=== PATIENT | female | born 1960 | race Caucasian/White ===

== ENCOUNTER 2016-09-15 06:55 | Day surgery (SDC) | payer BC, MEDICAID ==
[~2016-09-15 06:55] MED LIST: FENTANYL CITRATE INJ/PF 100 MCG/2 ML AMPUL ONE; KETOROLAC TROMETHAMINE 0.45% 4 DROP/0.4 ML DROPERETTE OS PRN; MIDAZOLAM 2 MG/2 ML INJ ONE
[2016-09-15] MEDS: CYCLOPENTOLATE 0.2%/PHENYLEPHRINE 1% OPH SOLN 2 ML OS PRN ×3 (07:11→07:42)
[2016-09-15] MEDS: TROPICAMIDE 1% OPH SOLN 3 ML OS PRN ×3 (07:11→07:42)
[2016-09-15] MEDS: BESIFLOXACIN HCL 0.6% OPH SUSP 5 ML BOTTLE OS PRN ×4 (07:12→08:12)
[2016-09-15] MEDS: TETRACAINE HCL 0.5% OPH SOLN 0.6 ML DROPERETTE OS PRN ×3 (07:13→07:53)
[2016-09-15] MEDS ORDERED: CHONDR SU A NA/HYALUR INTRAOC KIT (SURGICARE) ONE (07:15)
[2016-09-15] MEDS ORDERED: EPINEPHRINE INJ/PF 1 MG/1 ML AMPULE ONE (07:15)
[2016-09-15] MEDS ORDERED: LIDOCAINE 1% INJ-PF (10 MG/ML) 30 ML SDV ONE (07:15)
[2016-09-15] MEDS: TOBRAMYCIN SULFATE/DEXAMETH OPH OINTMENT 3.5 GM ONE ×2 (08:12)
== END 2016-09-15 08:55 | disposition home or self-care (01) ==
LOC: SC 06:55
PROVIDERS: ATTEND Ophthalmology
PROC: 08RK3JZ Replacement of Left Lens with Synthetic Substitute, Percutaneous Approach (ICD-10-PCS; principal; 2016-09-15 07:45)
DX: H25.12 Age-related nuclear cataract, left eye (principal); F17.210 Nicotine dependence, cigarettes, uncomplicated; M19.90 Unspecified osteoarthritis, unspecified site; J44.9 Chronic obstructive pulmonary disease, unspecified; E78.00 Pure hypercholesterolemia, unspecified; I10 Essential (primary) hypertension; F41.9 Anxiety disorder, unspecified; F32.9 Major depressive disorder, single episode, unspecified; G40.909 Epilepsy, unspecified, not intractable, without status epilepticus; Z79.899 Other long term (current) drug therapy; Z79.51 Long term (current) use of inhaled steroids; Z88.5 Allergy status to narcotic agent; Z88.2 Allergy status to sulfonamides
CPT/HCPCS: 66984; V2630; J2250; J3490 ×5; J0171; J3010; 142

== ENCOUNTER 2016-10-06 07:29 | Day surgery (SDC) | payer BC, MEDICAID ==
[~2016-10-06 07:29] MED LIST changes: +KETOROLAC TROMETHAMINE 0.45% 4 DROP/0.4 ML DROPERETTE OD PRN; -KETOROLAC TROMETHAMINE 0.45% 4 DROP/0.4 ML DROPERETTE OS PRN; +ONDANSETRON HCL INJ/PF 4 MG/2 ML SDV ONE
[2016-10-06] MEDS ORDERED: LIDOCAINE 1% INJ-PF (10 MG/ML) 30 ML SDV ONE (07:33)
[2016-10-06] MEDS ORDERED: TOBRAMYCIN SULFATE/DEXAMETH OPH OINTMENT 3.5 GM ONE (07:33)
[2016-10-06] MEDS ORDERED: EPINEPHRINE INJ/PF 1 MG/1 ML AMPULE ONE (07:33)
[2016-10-06] MEDS ORDERED: CHONDR SU A NA/HYALUR INTRAOC KIT (SURGICARE) ONE (07:33)
[2016-10-06] MEDS: TROPICAMIDE 1% OPH SOLN 3 ML OD PRN ×3 (07:50→08:11)
[2016-10-06] MEDS: TETRACAINE HCL 0.5% OPH SOLN 0.6 ML DROPERETTE OD PRN ×3 (07:50→08:34)
[2016-10-06] MEDS: CYCLOPENTOLATE 0.2%/PHENYLEPHRINE 1% OPH SOLN 2 ML OD PRN ×3 (07:50→08:11)
[2016-10-06] MEDS: BESIFLOXACIN HCL 0.6% OPH SUSP 5 ML BOTTLE OD PRN ×3 (07:50→08:51)
== END 2016-10-06 09:31 | disposition home or self-care (01) ==
LOC: SC 07:29
PROVIDERS: ATTEND Ophthalmology
PROC: 08RJ3JZ Replacement of Right Lens with Synthetic Substitute, Percutaneous Approach (ICD-10-PCS; principal; 2016-10-06 08:30)
DX: H25.11 Age-related nuclear cataract, right eye (principal); Z96.1 Presence of intraocular lens; M19.90 Unspecified osteoarthritis, unspecified site; J44.9 Chronic obstructive pulmonary disease, unspecified; I10 Essential (primary) hypertension; E78.00 Pure hypercholesterolemia, unspecified; F17.210 Nicotine dependence, cigarettes, uncomplicated; Z75.1 Person awaiting admission to adequate facility elsewhere; Z79.899 Other long term (current) drug therapy; Z88.5 Allergy status to narcotic agent; Z88.2 Allergy status to sulfonamides
CPT/HCPCS: 66984; V2630; J2250; J3490 ×5; J0171; J3010; J2405; 142

== ENCOUNTER 2016-10-16 11:55 | Emergency (ER) | payer BC, MEDICAID ==
[2016-10-16] MEDS ORDERED: ALBUTEROL SULFATE 0.083% NEB 2.5 MG/3 ML AMPUL NEB ONE (11:59)
[2016-10-16] MEDS ORDERED: IPRATROPIUM/ALBUTEROL 0.5-2.5 MG/3 ML AMPUL NEB ONE (11:59)
--- NOTE | 2016-10-16 12:01 | ER Document Report ---
ED Respiratory Problem - General Stated Complaint: DIFFICULTY BREATHING Time Seen by Provider: 10/16/16 11:55 Mode of Arrival: Stretcher Information source: Patient, Emergency Med Personnel TRAVEL OUTSIDE OF THE [place] IN LAST 30 DAYS: No - HPI Patient complains to provider of: COPD, Cough, Short of breath Onset: Yesterday Duration: Worse/persistent Quality of pain: No pain Context: Hx COPD, Smoker Short of Breath: Moderate Chest pain/discomfort: Tightness Cough: Productive Sputum amount: Small Sputum color: Clear Sputum consistency: Mucoid EMS treatments: Bronchodilators, Solumedrol Associated symptoms: Congestion, Cough, Short of breath, Wheezing Similar symptoms previously: Yes Recently seen / treated by doctor: No Notes: Patient is a 55-year-old female who smokes approximately one half pack per day, with a history of COPD, who presents to the emergency room today via EMS complaining of shortness of breath with a productive cough that has been going on for the past few days but worsening last night, cough is productive of clear phlegm, she denies any chest pain, no fever, no sick contacts - Related Data Allergies/Adverse Reactions: codeine Allergy (Verified 10/06/16 08:02) Migraine morphine Allergy (Verified 10/06/16 08:02) Hallucinations Sulfa (Sulfonamide Antibiotics) Allergy (Verified 10/06/16 08:02) Nausea Past Medical History - General Information source: Patient - Social History Smoking Status: Current Every Day Smoker Family History: Reviewed & Not Pertinent - Past Medical History Cardiac Medical History: Reports: Hx Hypertension - medicated Denies: Hx Heart Attack Pulmonary Medical History: Reports: Hx Asthma - medicated Neurological Medical History: Reports: Hx Seizures - LAST 1971,no meds since. Denies: Hx Cerebrovascular Accident GI Medical History: Denies: Hx Hepatitis, Hx Hiatal Hernia, Hx Ulcer Infectious Medical History: Denies: Hx Hepatitis Past Surgical History: Reports: Hx Hysterectomy. Denies: Hx Mastectomy, Hx Open Heart Surgery, Hx Pacemaker Review of Systems - Review of Systems Constitutional: No symptoms reported EENT: No symptoms reported Cardiovascular: No symptoms reported Respiratory: See HPI Gastrointestinal: No symptoms reported Genitourinary: No symptoms reported Female Genitourinary: No symptoms reported Musculoskeletal: No symptoms reported Skin: No symptoms reported Hematologic/Lymphatic: No symptoms reported Neurological/Psychological: No symptoms reported -: Yes All other systems reviewed and negative Physical Exam - Vital signs Vitals: Temp Pulse Ox 98.5 F 94 10/16/16 11:55 10/16/16 11:55 Interpretation: Normal - General General appearance: Appears well, Alert - HEENT Head: Normocephalic, Atraumatic Eyes: Normal Pupils: PERRL - Respiratory Respiratory status: Tachypnea Chest status: Nontender Breath sounds: Productive cough, Wheezing Chest palpation: Normal - Cardiovascular Rhythm: Regular Heart sounds: Normal auscultation Murmur: No - Abdominal Inspection: Normal Distension: No distension Bowel sounds: Normal Tenderness: Nontender Organomegaly: No organomegaly - Back Back: Normal, Nontender - Extremities General upper extremity: Normal inspection, Nontender, Normal color, Normal ROM , Normal temperature General lower extremity: Normal inspection, Nontender, Normal color, Normal ROM , Normal temperature, Normal weight bearing. No: Forrest's sign - Neurological Neuro grossly intact: Yes Cognition: Normal Orientation: AAOx4 Denisse Coma Scale Eye Opening: Spontaneous Denisse Coma Scale Verbal: Oriented Denisse Coma Scale Motor: Obeys Commands Denisse Coma Scale Total: 15 Speech: Normal Motor strength normal: LUE, RUE, LLE, RLE Sensory: Normal - Psychological Associated symptoms: Normal affect, Normal mood - Skin Skin Temperature: Warm Skin Moisture: Diaphoretic Skin Color: Normal Course - Re-evaluation Re-evalutation: 10/16/16 13:09 Patient reports feeling much better, she is in no respiratory distress, lungs are clear to auscultation, she does smell of cigarettes, I had a discussion with her regarding quitting smoking, she reports that she does quit drinking, she lost her recently, she is living with her 's daughter, and she is trying to quit smoking but it is difficult for her to do so considering all her recent stressors, she is also had recent cataract surgery, patient will be started on antibiotics and steroids, she reports having plenty of nebulizer treatments at home at this point in time, she will be discharged with instructions for follow-up and advised to return if any additional concerns, patient acknowledges understanding and agreement with this plan - Vital Signs Vital signs: Temp Pulse Resp BP Pulse Ox 98.5 F 18 156/85 H 98 10/16/16 11:55 10/16/16 12:02 10/16/16 12:02 10/16/16 12:02 - Laboratory Result Diagrams: 10/16/16 12:05 10/16/16 12:05 Laboratory results interpreted by me: 10/16/16 10/16/16 12:05 12:05 MCV 108 H MCH 37.7 H RDW 15.5 H Sodium 131.0 L Chloride 95 L BUN 6 L Creatinine 0.45 L Direct Bilirubin 0.5 H AST 93 H ALT 60 H - Diagnostic Test Radiology reviewed: Image reviewed, Reports reviewed - EKG Interpretation by Me EKG shows normal: Sinus rhythm Rate: Normal Rhythm: NSR Discharge - Discharge Clinical Impression: COPD exacerbation Condition: Stable Disposition: HOME, SELF-CARE Instructions: Chronic Obstructive Lung Disease ([facility]) Additional Instructions: Follow up with your primary care provider in one to 2 days. Return to the emergency room immediately if symptoms worsen or any additional concerns. Prescriptions: Azithromycin [Zithromax 250 mg Tablet] 250 mg PO ASDIR PRN #6 tablet PRN Reason: Prednisone 40 mg PO DAILY #8 tablet
[2016-10-16 12:20] LABS: ABSOLUTE BASOPHILS # (AUTO) 0.1 10^3/uL (0.0-0.2); ABSOLUTE LYMPHOCYTES (AUTO) 1.1 10^3/uL (0.5-4.7); ABSOLUTE MONOCYTES (AUTO) 0.5 10^3/uL (0.1-1.4); BASOPHILS % (AUTO) 1.4 % (0-2); EOSINOPHILS % (AUTO) 0.8 % (0-6); HEMATOCRIT 44.2 % (36.0-47.0); HEMOGLOBIN 15.4 g/dL (12.0-15.5); LYMPHOCYTES % (AUTO) 19.6 % (13-45); MEAN CORPUSCULAR HEMOGLOBIN 37.7 pg (27.0-33.4); MEAN CORPUSCULAR HGB CONC 34.9 g/dL (32.0-36.0); MEAN CORPUSCULAR VOLUME 108 fl (80-97); MONOCYTES % (AUTO) 8.9 % (3-13); RED BLOOD COUNT 4.09 10^6/uL (3.72-5.28); RED CELL DISTRIBUTION WIDTH 15.5 % (11.5-14.0); SEGMENTED NEUTROPHILS % (AUTO) 69.3 % (42-78); WHITE BLOOD COUNT 5.8 10^3/uL (4.0-10.5)
[2016-10-16 12:36] LABS: ALANINE AMINOTRANSFERASE 60 U/L (9-52); ALBUMIN 4.4 g/dL (3.5-5.0); ALKALINE PHOSPHATASE 121 U/L (38-126); ANION GAP 11 (5-19); ASPARTATE AMINO TRANSFERASE 93 U/L (14-36); BILIRUBIN,DIRECT 0.5 mg/dL (0.0-0.4); BILIRUBIN,TOTAL 1.2 mg/dL (0.2-1.3); BLOOD UREA NITROGEN 6 mg/dL (7-20); CALCIUM 9.8 mg/dL (8.4-10.2); CARBON DIOXIDE 25 mmol/L (22-30); CHLORIDE 95 mmol/L (98-107); CREATININE RESULT 0.45 mg/dL (0.52-1.25); GLUCOSE 95 mg/dL (75-110); POTASSIUM 4.5 mmol/L (3.6-5.0); TOTAL PROTEIN 7.4 g/dL (6.3-8.2)
--- NOTE | 2016-10-16 12:45 | RADIOLOGY REPORT (SQ) ---
EXAM DESCRIPTION: CHEST SINGLE VIEW COMPLETED DATE/TIME: 10/16/2016 12:28 pm REASON FOR STUDY: cough COMPARISON: None. EXAM PARAMETERS: NUMBER OF VIEWS: One view. TECHNIQUE: Single frontal radiographic view of the chest acquired. RADIATION DOSE: NA LIMITATIONS: None. FINDINGS: LUNGS AND PLEURA: No opacities, masses or pneumothorax. No pleural effusion. MEDIASTINUM AND HILAR STRUCTURES: No masses. Contour normal. HEART AND VASCULAR STRUCTURES: Heart normal in size. Normal vasculature. BONES: No acute findings. HARDWARE: None in the chest. OTHER: No other significant finding. IMPRESSION: NO ACUTE RADIOGRAPHIC FINDING IN THE CHEST. TECHNICAL DOCUMENTATION: JOB ID: [id number]
[2016-10-16] MEDS ORDERED: AZITHROMYCIN 250 MG TABLET PO ONE (13:13)
[2016-10-16 13:53] VITALS: BP 147/85
--- NOTE | 2016-10-16 15:15 | EKG REPORT ---
SEVERITY:- ABNORMAL ECG - SINUS RHYTHM PROBABLE LEFT ATRIAL ABNORMALITY BORDERLINE T ABNORMALITIES, ANT-LAT LEADS BORDERLINE ST ELEVATION, INFERIOR LEADS : Confirmed by: Kati Calvo MD 16-Oct-2016 15:14:47
== END 2016-10-16 13:53 | disposition home or self-care (01) ==
LOC: ER 11:55
DX: J44.1 Chronic obstructive pulmonary disease with (acute) exacerbation (principal); R06.02 Shortness of breath; R05 Cough; F17.200 Nicotine dependence, unspecified, uncomplicated
CPT/HCPCS: 93005; 94640 ×2; 99285; 36415; 87040; 85025; 80053; 71010; 93010; Q0144; J7620

== ENCOUNTER 2016-11-29 01:36 | Emergency (ER) | payer MEDICAID ==
[2016-11-29] MEDS ORDERED: METHYLPREDNISOLONE INJ 125 MG/2 ML SDV IV ONE (01:42)
[2016-11-29] MEDS ORDERED: IPRATROPIUM/ALBUTEROL 0.5-2.5 MG/3 ML AMPUL NEB ONE (01:42)
--- NOTE | 2016-11-29 01:57 | ER Document Report ---
ED Respiratory Problem - General Chief Complaint: Shortness Of Breath Stated Complaint: SHORTNESS OF BREATH Time Seen by Provider: 11/29/16 01:42 Notes: The patient is a 56-year-old female, past medical history COPD, asthma, current smoker, presents with 1 day of increased coughing and wheezing. She tried four albuterol inhalers at home with some relief of her symptoms. When EMS arrived, her oxygen was 85% and she was given a DuoNeb. She says that she feels much better and her oxygen is 94% on room air on arrival to the ER. She is on 5 mg prednisone daily and her primary care physician is trying to set her up with home oxygen. Patient only having mild chest pain when she coughs and she says that this is a chronic issue for her. She denies hemoptysis, fevers, recent travel, leg swelling, nausea, vomiting, abdominal pain, back pain or rash. TRAVEL OUTSIDE OF THE [place] IN LAST 30 DAYS: No - Related Data Allergies/Adverse Reactions: codeine Allergy (Verified 11/29/16 01:46) Migraine morphine Allergy (Verified 11/29/16 01:46) Hallucinations Sulfa (Sulfonamide Antibiotics) Allergy (Verified 11/29/16 01:46) Nausea Past Medical History - General Information source: Patient - Social History Smoking Status: Current Every Day Smoker Family History: Reviewed & Not Pertinent - Past Medical History Cardiac Medical History: Reports: Hx Hypertension - medicated Denies: Hx Heart Attack Pulmonary Medical History: Reports: Hx Asthma - medicated Neurological Medical History: Reports: Hx Seizures - LAST 1971,no meds since. Denies: Hx Cerebrovascular Accident Renal/ Medical History: Denies: Hx Peritoneal Dialysis GI Medical History: Denies: Hx Hepatitis, Hx Hiatal Hernia, Hx Ulcer Infectious Medical History: Denies: Hx Hepatitis Past Surgical History: Reports: Hx Hysterectomy. Denies: Hx Mastectomy, Hx Open Heart Surgery, Hx Pacemaker - Immunizations Hx Diphtheria, Pertussis, Tetanus Vaccination: No Review of Systems - Review of Systems Notes: REVIEW OF SYSTEMS: CONSTITUTIONAL: -fevers, -chills EENT: -eye pain, -difficulty swallowing, -nasal congestion CARDIOVASCULAR: -syncope. RESPIRATORY: +cough, +SOB GASTROINTESTINAL: -abdominal pain, -nausea, -vomiting, -diarrhea GENITOURINARY: -dysuria, -hematuria MUSCULOSKELETAL: -back pain, -neck pain SKIN: -rash or skin lesions. HEMATOLOGIC: -easy bruising or bleeding. LYMPHATIC: -swollen, enlarged glands. NEUROLOGICAL: -altered mental status or loss of consciousness, -headache, - neurologic symptoms PSYCHIATRIC: -anxiety, -depression. ALL OTHER SYSTEMS REVIEWED AND NEGATIVE. Physical Exam - Vital signs Vitals: Resp Pulse Ox 22 H 94 11/29/16 01:41 11/29/16 01:41 - Notes Notes: PHYSICAL EXAMINATION: GENERAL: Well-appearing, well-nourished and in no acute distress. HEAD: Atraumatic, normocephalic. EYES: Pupils equal round and reactive to light, extraocular movements intact, sclera anicteric, conjunctiva are normal. ENT: nares patent, oropharynx clear without exudates. Moist mucous membranes. NECK: Normal range of motion, supple without lymphadenopathy LUNGS: No respiratory distress. Mild end-expiratory wheezing. HEART: Regular rate and rhythm without murmurs ABDOMEN: Soft, nontender, normoactive bowel sounds. No guarding, no rebound. No masses appreciated. EXTREMITIES: Normal range of motion, no pitting or edema. No cyanosis. NEUROLOGICAL: Cranial nerves grossly intact. Normal speech, normal gait. Normal sensory and motor exams. PSYCH: Normal mood, normal affect. SKIN: Warm, Dry, normal turgor, no rashes or lesions noted. Course - Re-evaluation Re-evalutation: Patient appears well and she is speaking full sentences. Chest x-ray does not show any pneumonia and patient does not have fever. After DuoNeb's and steroids , patient feels much better and her wheezing resolved. She is requesting discharge. Patient's oxygen on room air will get down to 87% and she said that she is in the process of trying to obtain home oxygen from her primary care physician. However this is taking a long time. Will place a consult to the [facility], Horace Ruiz, to help patient obtain home oxygen. Also provided patient with smoking cessation counseling due to her continued tobacco use. Patient had no new chest pain. She said that she has plenty of albuterol at home and will add a short course of prednisone burst. Given very strict return precautions and she understands. - Vital Signs Vital signs: Temp Pulse Resp BP Pulse Ox 98 F 90 20 113/64 88 L 11/29/16 01:46 11/29/16 01:46 11/29/16 02:31 11/29/16 02:31 11/29/16 02:31 - Diagnostic Test Radiology reviewed: Image reviewed, Reports reviewed Radiology results interpreted by me: CXR: NAD Discharge - Discharge Clinical Impression: COPD with exacerbation Condition: Good Disposition: HOME, SELF-CARE Additional Instructions: BRONCHITIS: You have acute bronchitis. This disease is an infection or inflammation of the air passageways in your lungs. Symptoms usually include cough, low grade fever, shortness of breath, and wheezing. The cough usually persists for a couple of weeks. Most cases of bronchitis get better without antibiotics. We prescribe antibiotics when we believe bacteria are damaging your airways, or if there's high risk the bronchitis will worsen into pneumonia. Increase your fluid intake. A cool mist humidifier may make your lungs more comfortable. An expectorant (cough medicine that loosens phlegm) can help. If you smoke, STOP!!! Recovery from bronchitis can be somewhat slow, but you should see improvement within a day or two. Repeated episodes of bronchitis may result in lung damage -- for example, chronic bronchitis, recurrent pneumonias, or emphysema. Call the doctor if you develop increasing fever, shortness of breath, chest pain, bloody sputum, or otherwise worsen. If you have not improved at all after several days, contact the physician. BRONCHITIS WITH BRONCHOSPASM (WHEEZING): You have bronchitis with bronchospasm (wheezing). Sometimes people develop wheezing with a chest cold. This occurs either because of an underlying tendency toward asthma or because the virus itself irritates the bronchial tubes. This irritation causes cough, shortness of breath, and wheezing. Emergency treatment of bronchospasm may include adrenaline shots or bronchodilator aerosol. You may feel lightheaded and have a rapid pulse for an hour or two. Rest and get plenty of fluids. At home, we'll treat you with a bronchodilator inhaler. Corticosteroids may be required for some patients. Until you recover, avoid chemical fumes, dusts, pollens, and exercising in very cold or dry air. If you smoke, stop now! Most cases of bronchitis get better without antibiotics. We prescribe antibiotics when we believe bacteria are damaging your airways, or if there's high risk the bronchitis will worsen into pneumonia. Increase your fluid intake. A cool mist humidifier may make your lungs more comfortable. An expectorant (cough medicine that loosens phlegm) can help. Repeated episodes of bronchitis and bronchospasm may result in lung damage -- for example, chronic bronchitis, recurrent pneumonias, or emphysema. If you develop a fever, increased wheezing, chest pain, or severe shortness of breath, you should contact the doctor immediately. INHALED BRONCHODILATORS: You have received a treatment of and/or prescription for an inhaled bronchodilator -- a medication which stimulates the airways in the lung to dilate. This improves the flow of air in asthma, bronchitis, and emphysema. These medicines have some similarity to adrenaline, and can cause similar side effects: shakiness, racing heart, and a sense of nervousness. These side effects decrease with time. Contact your doctor if these side effects are severe. Do not over-use the medicine. Too-frequent use of the inhaler may make it ineffective. Call your doctor if the inhaler is not controlling your symptoms at the prescribed doses. STEROID MEDICATION: You have been given an injection of or oral medicine of the cortisone/ steroid class. This medication is used to control inflammation or allergy. Anand t is usually only given for a short period of time, until the acute process subsides. There are usually no side effects from short-term use of cortisone-like medications. Some persons feel an increased sense of well-being and are not sleepy at bedtime. Long-term use of cortisone medications is best avoided, unless required for a severe condition. If your condition does not remit, or relapses after the course of corticosteroid medication, you should consult your physician. USE OF ACETAMINOPHEN (Tylenol): Acetaminophen may be taken for pain relief or fever control. It's much safer than aspirin, offering a wider range of "safe" dosages. It is safe during . Some brand names are Tylenol, Panadol, Datril, Anacin 3, Tempra, and Liquiprin. Acetaminophen can be repeated every four hours. The following are maximum recommended dosages: >89 pounds or adults 650 mg to 900 mg Acetaminophen can be repeated every four hours. Maximum dose not to exceed 4000 mg a day. SMOKING: If you smoke, you should stop smoking. The tar and chemicals in cigarette smoke are harmful. Smoking has been shown to cause: emphysema chronic bronchitis lung cancer mouth and throat cancer stomach and pancreas cancer premature aging defects In addition, smoking increases ear and lung infections in children of smokers. FOLLOW-UP CARE: If you have been referred to a physician for follow-up care, call the physician s office for an appointment as you were instructed or within the next two days. If you experience worsening or a significant change in your symptoms, notify the physician immediately or return to the Emergency Department at any time for re-evaluation. Prescriptions: Prednisone [Deltasone 20 mg Tablet] 3 tab PO DAILY 5 Days tablet Referrals: DMITRI BOWER MD [ACTIVE STAFF] - Follow up as needed GIOVANA FLYNN MD [ACTIVE STAFF] - Follow up as needed
[2016-11-29 02:36] VITALS: BP 113/64
--- NOTE | 2016-11-29 02:47 | RADIOLOGY REPORT (SQ) ---
EXAM DESCRIPTION: CHEST PA/LAT COMPLETED DATE/TIME: 11/29/2016 2:19 am REASON FOR STUDY: SOB COMPARISON: None. EXAM PARAMETERS: NUMBER OF VIEWS: two views TECHNIQUE: Digital Frontal and Lateral radiographic views of the chest acquired. RADIATION DOSE: NA LIMITATIONS: none FINDINGS: LUNGS AND PLEURA: No opacities, masses or pneumothorax. No pleural effusion. Prominent in terstitium and right minor fissure, nonspecific. MEDIASTINUM AND HILAR STRUCTURES: No masses or contour abnormalities. HEART AND VASCULAR STRUCTURES: Normal cardiac silhouette size. Atherosclerosis. BONES: No acute findings. HARDWARE: None in the chest. OTHER: No other significant finding. IMPRESSION: No acute cardiopulmonary findings. TECHNICAL DOCUMENTATION: JOB ID: [id number] [employer]- All Rights Reserved
== END 2016-11-29 02:43 | disposition home or self-care (01) ==
LOC: ER 01:36
DX: J44.1 Chronic obstructive pulmonary disease with (acute) exacerbation (principal); R06.02 Shortness of breath; R05 Cough; R06.2 Wheezing; Z99.81 Dependence on supplemental oxygen; F17.200 Nicotine dependence, unspecified, uncomplicated
CPT/HCPCS: 94640; 99285; 96372; 71020; J2930; J7620

== ENCOUNTER 2016-11-30 21:55 | Inpatient (IN) | payer MEDICAID ==
--- NOTE | 2016-11-30 22:31 | RADIOLOGY REPORT (SQ) ---
EXAM DESCRIPTION: CHEST SINGLE VIEW COMPLETED DATE/TIME: 11/30/2016 10:21 pm REASON FOR STUDY: difficulty breathing COMPARISON: 11/29/2016 EXAM PARAMETERS: NUMBER OF VIEWS: One view. TECHNIQUE: Single frontal radiographic view of the chest acquired. RADIATION DOSE: NA LIMITATIONS: None. FINDINGS: LUNGS AND PLEURA: No opacities, masses or pneumothorax. No pleural effusion. MEDIASTINUM AND HILAR STRUCTURES: No masses. Contour normal. HEART AND VASCULAR STRUCTURES: Heart normal in size. Normal vasculature. BONES: No acute findings. HARDWARE: None in the chest. OTHER: No other significant finding. IMPRESSION: NO ACUTE RADIOGRAPHIC FINDING IN THE CHEST. TECHNICAL DOCUMENTATION: JOB ID: [id number]
--- NOTE | 2016-11-30 22:37 | EKG REPORT ---
SEVERITY:- ABNORMAL ECG - SINUS RHYTHM FIRST DEGREE AV BLOCK FRANCO, CONSIDER BIATRIAL ABNORMALITIES : Confirmed by: Jamil Mckeon 30-Nov-2016 22:36:16
--- NOTE | 2016-11-30 22:50 | ER Document Report ---
ED General - General Chief Complaint: Breathing Difficulty Stated Complaint: DIFFICULTY BREATHING Time Seen by Provider: 11/30/16 22:49 Notes: Patient is 56-year-old female presents with complaint of difficulty breathing. She was seen here yesterday for same thing. At that time she was found to be a little hypoxic. She was feeling improved. Her oxygen saturations were down to 90% on room air ;however, She had been trying to get home oxygen through her doctor. They therefore had social work see her this morning. They were unable to arrange for home oxygen but she was feeling improved and therefore discharged home. She comes back tonight because her wheezing has returned she has had difficulty breathing. Paramedics gave her multiple breathing treatments as well as Solu-Medrol. She denies any fevers. No recent infections. She does continue to smoke. TRAVEL OUTSIDE OF THE [place] IN LAST 30 DAYS: No - Related Data Allergies/Adverse Reactions: codeine Allergy (Verified 11/29/16 01:46) Migraine morphine Allergy (Verified 11/29/16 01:46) Hallucinations Sulfa (Sulfonamide Antibiotics) Allergy (Verified 11/29/16 01:46) Nausea Past Medical History - Social History Smoking Status: Current Every Day Smoker Frequency of alcohol use: Occasional Drug Abuse: None Family History: Reviewed & Not Pertinent - Past Medical History Cardiac Medical History: Reports: Hx Hypertension - medicated Denies: Hx Heart Attack Pulmonary Medical History: Reports: Hx Asthma - medicated Neurological Medical History: Reports: Hx Seizures - LAST 1971,no meds since. Denies: Hx Cerebrovascular Accident Renal/ Medical History: Denies: Hx Peritoneal Dialysis GI Medical History: Denies: Hx Hepatitis, Hx Hiatal Hernia, Hx Ulcer Infectious Medical History: Denies: Hx Hepatitis Past Surgical History: Reports: Hx Hysterectomy. Denies: Hx Mastectomy, Hx Open Heart Surgery, Hx Pacemaker - Immunizations Hx Diphtheria, Pertussis, Tetanus Vaccination: No Review of Systems - Review of Systems Notes: My Normal Review Basic REVIEW OF SYSTEMS: CONSTITUTIONAL : Denies fever, chills, or sweats. Denies recent illness. EENT: Denies eye, ear, throat, or mouth pain or symptoms. Denies nasal or sinus congestion. CARDIOVASCULAR: Denies chest pain. RESPIRATORY: Difficulty breathing. GASTROINTESTINAL: Denies abdominal pain. Denies nausea, vomiting, or diarrhea. Denies constipation. Last BM: MUSCULOSKELETAL: Denies neck or back pain or joint pain or swelling. SKIN: Denies rash or skin lesions. NEUROLOGICAL: Denies altered mental status or loss of consciousness. Denies headache. Denies weakness or paralysis or loss of use of either side. Denies problems with gait or speech. Denies sensory or motor loss. ALL OTHER SYSTEMS REVIEWED AND NEGATIVE. Physical Exam - Vital signs Vitals: Pulse Ox 90 L 11/30/16 21:59 - Notes Notes: General Appearance: Well nourished, alert, cooperative, well to moderate acute distress, no obvious discomfort. Vitals: reviewed, See vital signs table. Head: no swelling or tenderness to the head Eyes: PERRL, EOMI, Conjuctiva clear Mouth: No decreasd moisture Throat: No tonsillar inflammation, No airway obstruction, No lymphadenopathy Neck: Supple, no neck tenderness, No thyromegaly Lungs: Diffuse wheezing, No rales, scattered rhonci, mild accessory muscle use, fair air exchange bilaterally. Heart: Normal rate, Regular rythm, No murmur, no rub Abdomen: Normal BS, soft, No rigidity, No abdominal tenderness, No guarding, no rebound, no abdominal masses, no organomegaly Extremities: strength 5/5 in all extremities, good pulses in all extremities, no swelling or tenderness in the extremities, no edema. Skin: warm, dry, appropriate color, no rash Neuro: speech clear, oriented x 3, normal affect, responds appropriately to questions. Course - Re-evaluation Re-evalutation: 12/01/16 00:58 Patient continues to have some recurrent hypoxemia. Patient does need admission for COPD exacerbation continued hypoxemia. I did speak with Dr. Small, hospitalist, who requests that I order an ABG and call him back. - Vital Signs Vital signs: Temp Pulse Resp BP Pulse Ox 22 H 133/69 H 89 L 12/01/16 00:01 12/01/16 00:01 12/01/16 00:01 - Laboratory Result Diagrams: 11/30/16 22:25 11/30/16 22:25 Laboratory results interpreted by me: 11/30/16 11/30/16 11/30/16 22:25 22:25 22:25 MCV 106 H MCH 36.6 H RDW 15.1 H Plt Count 90 L Seg Neutrophils % 83.7 H Lymphocytes % 9.8 L ABG pH ABG pO2 ABG HCO3 ABG Total CO2 VBG pH Sodium 135.2 L Chloride 94 L Carbon Dioxide 32 H Glucose 112 H Direct Bilirubin 0.8 H AST 83 H Creatine Kinase 247 H CK-MB (CK-2) 9.32 H NT-Pro-B Natriuret Pep 1500 H 11/30/16 12/01/16 23:40 01:31 MCV MCH RDW Plt Count Seg Neutrophils % Lymphocytes % ABG pH 7.50 H ABG pO2 64.6 L ABG HCO3 30.5 H ABG Total CO2 31.7 H VBG pH 7.48 H Sodium Chloride Carbon Dioxide Glucose Direct Bilirubin AST Creatine Kinase CK-MB (CK-2) NT-Pro-B Natriuret Pep - EKG Interpretation by Me Additional EKG results interpreted by me: 11/30/16 22:50 EKG is reviewed and interpreted by me. EKG shows normal sinus rhythm with a rate of [address] segment elevation or depression. No ischemic T-wave inversions. VT interval is prolonged at 212 ms. QRS duration is within normal range. QTc interval is prolonged. Old EKG for comparison is from October 16, 2016. - Transfer of Care Notes: 12/01/16 01:55 Patient has what appears to be a COPD exacerbation with some bronchitis. She was seen yesterday and was discharged home but presents back with continued hypoxemia. Number time I try to turn her oxygen from 3 L she immediately goes into the 80s. She requires 3 L to keep around 92%. Her chest x-ray does not show any evidence of pneumonia. Her blood gas does not show any concerning the elevated CO2. I have spoken with the hospitalist who agrees to evaluate the patient for admission. Patient's lung sounds continue to improve but she still some scattered rhonchi and wheezing. Discharge - Discharge Clinical Impression: COPD with exacerbation Condition: Stable Disposition: ADMITTED OBSERVATION Admitting Provider: Hospitalist Unit Admitted: Telemetry
[2016-11-30 22:53] LABS: ABSOLUTE LYMPHOCYTES (AUTO) 0.5 10^3/uL (0.5-4.7); ABSOLUTE MONOCYTES (AUTO) 0.3 10^3/uL (0.1-1.4); ABSOLUTE NEUT (AUTO) 3.9 10^3/uL (1.7-8.2); BASOPHILS % (AUTO) 0.1 % (0-2); HEMATOCRIT 44.7 % (36.0-47.0); HEMOGLOBIN 15.5 g/dL (12.0-15.5); HGB HCT DIFFERENCE 1.8; LYMPHOCYTES % (AUTO) 9.8 % (13-45); MEAN CORPUSCULAR HEMOGLOBIN 36.6 pg (27.0-33.4); MEAN CORPUSCULAR HGB CONC 34.7 g/dL (32.0-36.0); MEAN CORPUSCULAR VOLUME 106 fl (80-97); MONOCYTES % (AUTO) 6.4 % (3-13); RED BLOOD COUNT 4.23 10^6/uL (3.72-5.28); RED CELL DISTRIBUTION WIDTH 15.1 % (11.5-14.0); SEGMENTED NEUTROPHILS % (AUTO) 83.7 % (42-78); WHITE BLOOD COUNT 4.6 10^3/uL (4.0-10.5)
[2016-11-30] MEDS ORDERED: ACETAMINOPHEN 325 MG TABLET PO ONE (23:06)
[2016-11-30 23:14] LABS: ALANINE AMINOTRANSFERASE 44 U/L (9-52); ALBUMIN 4.4 g/dL (3.5-5.0); ALKALINE PHOSPHATASE 81 U/L (38-126); ANION GAP 9 (5-19); ASPARTATE AMINO TRANSFERASE 83 U/L (14-36); BILIRUBIN,DIRECT 0.8 mg/dL (0.0-0.4); BILIRUBIN,TOTAL 1.1 mg/dL (0.2-1.3); BLOOD UREA NITROGEN 19 mg/dL (7-20); CALCIUM 10.1 mg/dL (8.4-10.2); CARBON DIOXIDE 32 mmol/L (22-30); CHLORIDE 94 mmol/L (98-107); CREATINE KINASE 247 U/L (30-135); CREATININE RESULT 0.58 mg/dL (0.52-1.25); GLUCOSE 112 mg/dL (75-110); SODIUM 135.2 mmol/L (137-145); TOTAL PROTEIN 7.2 g/dL (6.3-8.2)
[2016-11-30 23:26] LABS: CREATINE KINASE MB 9.32 ng/mL (<4.55); TROPONIN I 0.019 ng/mL
[2016-11-30] MEDS: MAGNESIUM SULFATE/D5W 1 GM/100 ML RTUPB IV SCH ×2 (23:35→23:37)
[2016-11-30] MEDS ORDERED: ALBUTEROL SULFATE 0.083% NEB 2.5 MG/3 ML AMPUL NEB ONE (23:52)
[2016-12-01] LABS: VENOUS BLOOD BASE EXCESS 5.4 mmol/L; VENOUS BLOOD HCO3 29.2 mmol/L (20-32); VENOUS BLOOD PCO2 39.8 mmHg (35-63); VENOUS BLOOD PH 7.48 (7.30-7.42)
[2016-12-01 01:43] LABS: ARTERIAL BLOOD BASE EXCESS 6.8 mmol/L; ARTERIAL BLOOD O2 SATURATION 94.2 % (94-98)
[2016-12-01] MEDS ORDERED: THIAMINE HCL 100 MG, FOLIC ACID 1 MG in NORMAL SALINE 50 ML IV SCH (02:00)
[2016-12-01] MEDS ORDERED: IPRATROPIUM/ALBUTEROL 0.5-2.5 MG/3 ML AMPUL NEB PRN (02:00)
[2016-12-01] MEDS ORDERED: CHLORPHENIRAMINE MALEATE 4 MG TABLET PO ONE (02:00)
[2016-12-01] MEDS ORDERED: NICOTINE 7 MG/24 HR PATCH.TD24 TD ONE (02:03)
[2016-12-01] MEDS ORDERED: FLUTICASONE NASAL SPRAY 50 MCG/SPRY 120 SPRAY/16 GM NASL ONE (02:30)
[2016-12-01] MEDS: IPRATROPIUM/ALBUTEROL 0.5-2.5 MG/3 ML AMPUL NEB SCH ×4 (02:41→20:27)
[2016-12-01] MEDS ORDERED: FLUTICASONE NASAL SPRAY 50 MCG/SPRY 120 SPRAY/16 GM ONE (02:53)
[2016-12-01] MEDS ORDERED: NICOTINE 7 MG/24 HR PATCH.TD24 ONE (02:53)
[2016-12-01] MEDS ORDERED: CHLORPHENIRAMINE MALEATE 4 MG TABLET ONE (02:53)
[2016-12-01] MEDS ORDERED: THIAMINE HCL 100 MG, FOLIC ACID 1 MG in NORMAL SALINE 50 ML IV ONE ×2 (03:00→03:30)
[2016-12-01] MEDS ORDERED: LEVOFLOXACIN 750 MG/D5W RTU 750 MG/150 ML RTUPB IV ONE ×2 (03:00→04:00)
--- NOTE | 2016-12-01 03:21 | PDOC H&P ---
History of Present Illness Admission Date/PCP: 12/01/16 02:08 Patient complains of: Shortness of breath History of Present Illness: CHERI STEVENS is a 56 year old female with a past medical history of COPD, chronic bronchitis, tobacco and alcohol dependence who would been her usual state of health until approximately 48 hours ago presented to the emergency room after 24 hours of rhinorrhea, nonproductive cough and exacerbation of COPD she was prescribed prednisone and discharged home however has not had significant improvement. Patient is tremulous with tachycardia, tachypnea and bilateral rhonchi. Patient now discloses she is an alcoholic fearful of alcohol withdrawal as she is without finances to maintain her habit. She is referred to the hospitalist for admission. Past Medical History Cardiac Medical History: Reports: Hypertension - medicated Denies: Myocardial Infarction Pulmonary Medical History: Reports: Bronchitis, Chronic Obstructive Pulmonary Disease (COPD) Neurological Medical History: Reports: Seizures - LAST 1971,no meds since GI Medical History: Denies: Hepatitis, Hiatal Hernia Psychiatric Medical History: Reports: Alcohol Dependency, Tobacco Dependency Hematology: Denies: Anemia, Sickle Cell Disease Past Surgical History Past Surgical History: Reports: Hysterectomy Denies: Amputation, Mastectomy, Pacemaker Social History Smoking Status: Current Every Day Smoker Cigarettes Packs Per Day: 1 Frequency of Alcohol Use: Heavy Drugs: None - Advance Directive Resuscitation Status: Full Code Family History Family History: COPD, Hypertension Parental Family History Reviewed: Yes Children Family History Reviewed: Yes Sibling(s) Family History Reviewed.: Yes Medication/Allergy Home Medications: Atorvastatin Calcium 20 mg PO DAILY 09/10/16 Cholecalciferol (Vitamin D3) [Vitamin D3 400 Unit Tablet] 400 unit PO DAILY Diazepam [Valium 5 mg Tablet] 5 mg PO ASDIR 09/10/16 Fenofibrate 150 mg PO DAILY 09/10/16 Fluticasone/Salmeterol [Advair HFA 230-21 mcg Inhaler] 2 puff IH Q4 09/10/16 Glucosamine/D3/Boswellia Johana [Osteo Bi-Flex Caplet] 1 each PO DAILY 09/10/16 Lisinopril/Hydrochlorothiazide [Lisinopril-Hctz 10-12.5 mg Tab] 1 each PO DAILY 09/10/16 Montelukast Sodium 10 mg PO DAILY 09/10/16 Venlafaxine HCl [Effexor 75 mg Tablet] 75 mg PO DAILY 09/10/16 Albuterol Sulfate [Proair Hfa Inhalation Aerosol 8.5 gm Mdi] 2 puff IH Q4 Albuterol Sulfate [Ventolin 0.083% Neb 2.5 mg/3 ml Ampul] 1 vial NEB Q4 PRN Azithromycin [Zithromax 250 mg Tablet] 250 mg PO ASDIR PRN #6 tablet 10/16/16 Prednisone 40 mg PO DAILY #8 tablet 10/16/16 Prednisone [Deltasone 20 mg Tablet] 3 tab PO DAILY 5 Days tablet 11/29/16 Allergies/Adverse Reactions: codeine Allergy (Verified 11/29/16 01:46) Migraine morphine Allergy (Verified 11/29/16 01:46) Hallucinations Sulfa (Sulfonamide Antibiotics) Allergy (Verified 11/29/16 01:46) Nausea Review of Systems ROS unobtainable: Other - Chronically ill-appearing, jaundiced Constitutional: PRESENT: anorexia, fatigue, weakness, weight gain Eyes: ABSENT: visual disturbances Ears: ABSENT: hearing changes Nose, Mouth, and Throat: PRESENT: as per HPI Cardiovascular: ABSENT: chest pain, dyspnea on exertion, edema, orthropnea, palpitations Respiratory: PRESENT: cough, dyspnea. ABSENT: hemoptysis, sputum Gastrointestinal: PRESENT: bloating, heartburn, nausea. ABSENT: abdominal pain , constipation, diarrhea, hematemesis, hematochezia, vomiting Genitourinary: ABSENT: dysuria, hematuria Musculoskeletal: ABSENT: joint swelling Integumentary: ABSENT: rash, wounds Neurological: ABSENT: abnormal gait, abnormal speech, confusion, dizziness, focal weakness, syncope Psychiatric: PRESENT: anxiety. ABSENT: depression, homidical ideation, suicidal ideation Endocrine: ABSENT: cold intolerance, heat intolerance, polydipsia, polyuria Hematologic/Lymphatic: ABSENT: easy bleeding, easy bruising Physical Exam Vital Signs: Temp Pulse Resp BP Pulse Ox 18 142/88 H 94 12/01/16 03:01 12/01/16 03:01 12/01/16 03:01 Intake & Output 11/29/16 11/30/16 12/01/16 11:59 11:59 11:59 Weight 58.967 kg General appearance: PRESENT: cooperative, disheveled, mild distress. ABSENT: well-developed, well-nourished Head exam: PRESENT: atraumatic, normocephalic Eye exam: PRESENT: conjunctival injection, EOMI, PERRLA, scleral icterus Ear exam: PRESENT: normal external ear exam Mouth exam: PRESENT: moist, tongue midline Neck exam: ABSENT: carotid bruit, JVD, lymphadenopathy, thyromegaly Respiratory exam: PRESENT: accessory muscle use, crackles, prolonged expiratory phas, retraction, rhonchi, symmetrical, tachypnea. ABSENT: wheezes Cardiovascular exam: PRESENT: RRR. ABSENT: diastolic murmur, rubs, systolic murmur Pulses: PRESENT: normal dorsalis pedis pul GI/Abdominal exam: PRESENT: hyperactive bowel sounds, soft, tenderness. ABSENT : distended, firm, guarding Rectal exam: PRESENT: deferred Extremities exam: PRESENT: full ROM. ABSENT: calf tenderness, clubbing, pedal edema Neurological exam: PRESENT: alert, awake, oriented to person, oriented to place , oriented to time, oriented to situation, CN II-XII grossly intact. ABSENT: motor sensory deficit Psychiatric exam: PRESENT: anxious Skin exam: PRESENT: dry, intact, warm. ABSENT: cyanosis, rash Results Impressions: Chest X-Ray 11/30/16 22:05 IMPRESSION: NO ACUTE RADIOGRAPHIC FINDING IN THE CHEST. Assessment & Plan - Diagnosis (1) COPD with exacerbation Is this a current diagnosis for this admission?: Yes Plan: Supplemental oxygen, Flonase, chlorpheniramine, empiric antibiotics and flutter valve (2) Acute exacerbation of chronic bronchitis Is this a current diagnosis for this admission?: Yes Plan: Albuterol, Atrovent, flutter valve, empiric antibiotics and avoidance of tobacco (3) Seasonal allergic rhinitis Is this a current diagnosis for this admission?: Yes Plan: Chlorpheniramine (4) Alcohol dependence Is this a current diagnosis for this admission?: Yes Plan: Thiamine, folate as needed benzodiazepine (5) Alcohol withdrawal Is this a current diagnosis for this admission?: Yes Plan: Thiamine, folate, supportive measures and Ativan as needed - Time Time Spent: 50 to 70 Minutes - Inpatient Certification Medical Necessity: Need Close Monitoring Due to Risk of Patient Decompensation
[2016-12-01] MEDS ORDERED: THIAMINE HCL INJ 200 MG/2 ML VIAL IV PRN (03:33)
[2016-12-01] MEDS ORDERED: FOLIC ACID INJ 5 MG/1 ML 10 ML VIAL IV PRN (03:35)
[2016-12-01 03:37] LABS: ALANINE AMINOTRANSFERASE 46 U/L (9-52); ALBUMIN 4.4 g/dL (3.5-5.0); ALKALINE PHOSPHATASE 82 U/L (38-126); ASPARTATE AMINO TRANSFERASE 86 U/L (14-36); BILIRUBIN,DIRECT 0.9 mg/dL (0.0-0.4); BILIRUBIN,TOTAL 1.1 mg/dL (0.2-1.3); TOTAL PROTEIN 7.1 g/dL (6.3-8.2)
[2016-12-01] MEDS: HEPARIN SOD (PORCINE) 5,000 UNIT/ML 1 ML SYRINGE SUBCUT SCH ×2 (05:30→13:41)
[2016-12-01 05:43] LABS: HEMATOCRIT 42.1 % (36.0-47.0); HEMOGLOBIN 14.7 g/dL (12.0-15.5); MEAN CORPUSCULAR HGB CONC 34.9 g/dL (32.0-36.0); MEAN CORPUSCULAR VOLUME 106 fl (80-97); RED BLOOD COUNT 3.97 10^6/uL (3.72-5.28); WHITE BLOOD COUNT 4.3 10^3/uL (4.0-10.5)
[2016-12-01 05:44] LABS: ANION GAP 11 (5-19); BLOOD UREA NITROGEN 21 mg/dL (7-20); CALCIUM 9.5 mg/dL (8.4-10.2); CARBON DIOXIDE 29 mmol/L (22-30); CHLORIDE 94 mmol/L (98-107); CREATININE RESULT 0.58 mg/dL (0.52-1.25); GLUCOSE 153 mg/dL (75-110); POTASSIUM 3.5 mmol/L (3.6-5.0); SODIUM 134.2 mmol/L (137-145)
[2016-12-01 06:00] LABS: BAND NEUTROPHILS % (MANUAL) 1 % (3-5); BASOPHILS % (MANUAL) 0 % (0-2); EOSINOPHILS % (MANUAL) 0 % (0-6); LYMPHOCYTES % (MANUAL) 4 % (13-45); TOTAL CELLS COUNTED 100
[2016-12-01 06:03] LABS: ANISOCYTOSIS SLIGHT
[2016-12-01] MEDS ORDERED: LORAZEPAM 1 MG TABLET PO ONE (08:47)
[2016-12-01] MEDS: VENLAFAXINE HCL 75 MG TABLET PO SCH (09:01)
[2016-12-01] MEDS: ATORVASTATIN CALCIUM 20 MG TABLET PO SCH (09:01)
[2016-12-01 09:06] LABS: CREATINE KINASE MB 5.34 ng/mL (<4.55); TROPONIN I 0.049 ng/mL
[2016-12-01] MEDS: FLUTICASONE NASAL SPRAY 50 MCG/SPRY 120 SPRAY/16 GM NASL SCH ×2 (09:15→22:31)
[2016-12-01] MEDS: THIAMINE HCL 100 MG, FOLIC ACID 1 MG in NORMAL SALINE 50 ML IV SCH (10:31)
--- NOTE | 2016-12-01 12:31 | PDOC PROGRESS REPORT ---
Subjective Progress Note for:: 12/01/16 Subjective:: She complains of headache as well as some neck discomfort. She failed recently and has been bothered by both since. Physical Exam Vital Signs: Temp Pulse Resp BP Pulse Ox 98.2 F 73 17 136/68 H 95 12/01/16 08:29 12/01/16 09:22 12/01/16 08:29 12/01/16 08:29 12/01/16 08:29 Intake & Output 11/30/16 12/01/16 12/02/16 06:59 06:59 06:59 Intake Total 0 Output Total 200 Balance -200 Weight 58.967 kg General appearance: PRESENT: no acute distress, disheveled, well-developed, well -nourished Head exam: PRESENT: atraumatic, normocephalic Eye exam: PRESENT: conjunctiva pink, EOMI, PERRLA. ABSENT: scleral icterus Neck exam: ABSENT: carotid bruit, JVD, lymphadenopathy, thyromegaly Respiratory exam: PRESENT: clear to auscultation elvis. ABSENT: rales, rhonchi, wheezes Cardiovascular exam: PRESENT: RRR. ABSENT: diastolic murmur, rubs, systolic murmur GI/Abdominal exam: PRESENT: normal bowel sounds, soft. ABSENT: distended, guarding, mass, organolmegaly, rebound, tenderness Neurological exam: PRESENT: alert, awake, oriented to person, oriented to place , oriented to time, oriented to situation, ataxia, CN II-XII grossly intact Psychiatric exam: PRESENT: appropriate affect. ABSENT: agitated, anxious Skin exam: PRESENT: dry, intact, warm. ABSENT: cyanosis, rash Results Laboratory Results: 12/01/16 04:15 12/01/16 04:15 12/01/16 12/01/16 04:15 04:15 WBC 4.3 RBC 3.97 Hgb 14.7 Hct 42.1 MCV 106 H MCH 37.0 H MCHC 34.9 RDW 15.0 H Plt Count 81 L Seg Neutrophils % Not Reportable Lymphocytes % Not Reportable Monocytes % Not Reportable Eosinophils % Not Reportable Basophils % Not Reportable Absolute Neutrophils Not Reportable Absolute Lymphocytes Not Reportable Absolute Monocytes Not Reportable Absolute Eosinophils Not Reportable Absolute Basophils Not Reportable Sodium 134.2 L Potassium 3.5 L Chloride 94 L Carbon Dioxide 29 Anion Gap 11 BUN 21 H Creatinine 0.58 Est GFR ( Amer) > 60 Est GFR (Non-Af Amer) > 60 Glucose 153 H Calcium 9.5 12/01/16 12/01/16 08:12 08:12 Creatine Kinase 127 CK-MB (CK-2) 5.34 H Troponin I 0.049 Impressions: Chest X-Ray 11/30/16 22:05 IMPRESSION: NO ACUTE RADIOGRAPHIC FINDING IN THE CHEST. Assessment & Plan - Diagnosis (1) Alcohol withdrawal Qualifiers: Complication of substance-induced condition: uncomplicated Qualified Code(s ): F10.230 - Alcohol dependence with withdrawal, uncomplicated Is this a current diagnosis for this admission?: Yes Plan: Start lorazepam 2 mg by mouth every 8 hours, then taper over the next several days. Continue multivitamin, thiamine, and folate. She needs physical therapy. She is ataxic. I do not want her to lay in bed. (2) Acute exacerbation of chronic bronchitis Is this a current diagnosis for this admission?: Yes Plan: Doing well. She is not wheezing on exam. Continue current care. (3) Hypokalemia Is this a current diagnosis for this admission?: Yes Plan: Replace as needed. Check magnesium and phosphorus as well. - Time Time Spent with patient: 25-34 minutes Medications reviewed and adjusted accordingly: Yes Anticipated discharge: Home Within: within 48 hours
[2016-12-01 13:36] LABS: MAGNESIUM 2.1 mg/dL (1.6-2.3)
[2016-12-01] MEDS: LORAZEPAM 1 MG TABLET PO SCH ×2 (13:40→22:30)
[2016-12-01] MEDS: POTASSIUM CHLORIDE 10 MEQ TABLET.SA PO SCH ×2 (13:40→17:48)
[2016-12-01] MEDS: KETOROLAC TROMETHAMINE INJ/PF 30 MG/1 ML SDV IV PRN ×2 (15:33→22:31)
[2016-12-01] MEDS ORDERED: NICOTINE 14 MG/24 HR PATCH.TD24 TD ONE (19:00)
--- NOTE | 2016-12-01 19:08 | RADIOLOGY REPORT (SQ) ---
EXAM DESCRIPTION: CT HEAD WITHOUT COMPLETED DATE/TIME: 12/01/2016 6:55 pm REASON FOR STUDY: headache, fall COMPARISON: None. TECHNIQUE: Axial images acquired through the brain without intravenous contrast. Images reviewed wi th bone, brain and subdural windows. Images stored on PACS. All CT scanners at this facility use dose modulation, iterative reconstruction, and/or weight based d osing when appropriate to reduce radiation dose to as low as reasonably achievable (ALARA). [facility]: Dose Right [facility]: CareDose [facility]: Dose Right [facility]: Teradose 4D [facility]: Smart OPENLANE RADIATION DOSE: Up-to-date CT equipment and radiation dose reduction techniques were employed. CTDIv ol: 64.6 mGy. DLP: 1163 mGy-cm. mGy. LIMITATIONS: None. FINDINGS: VENTRICLES: Normal size and contour. CEREBRUM: No masses. No hemorrhage. No midline shift. No evidence for acute infarction. Normal gra y/white matter differentiation. No areas of low density in the white matter. CEREBELLUM: No masses. No hemorrhage. No alteration of density. No evidence for acute infarction. EXTRAAXIAL SPACES: No fluid collections. No masses. ORBITS AND GLOBE: No intra- or extraconal masses. Normal contour of globe without masses. CALVARIUM: No fracture. PARANASAL SINUSES: No fluid or mucosal thickening. SOFT TISSUES: No mass or hematoma. OTHER: No other significant finding. IMPRESSION: NORMAL BRAIN CT WITHOUT CONTRAST. COMMENT: Quality ID # [id number]: Final reports with documentation of one or more dose reduction techniques (e.g., Automated exposure control, adjustment of the mA and/or kV according to patient size, use of iterative reconstruction technique) TECHNICAL DOCUMENTATION: JOB ID: [id number]- All Rights Reserved
--- NOTE | 2016-12-01 19:10 | RADIOLOGY REPORT (SQ) ---
EXAM DESCRIPTION: CT CERVICAL SPINE WITHOUT COMPLETED DATE/TIME: 12/01/2016 6:58 pm REASON FOR STUDY: neck pain. fall COMPARISON: None. TECHNIQUE: Axial images acquired through the cervical spine without intravenous contrast. Images re viewed with lung, soft tissue and bone windows. Reconstructed coronal and sagittal MPR images review ed. Images stored on PACS. All CT scanners at this facility use dose modulation, iterative reconstruction, and/or weight based d osing when appropriate to reduce radiation dose to as low as reasonably achievable (ALARA). [facility]: Dose Right [facility]: CareDose [facility]: Dose Right [facility]: Teradose 4D [facility]: Smart HSystem RADIATION DOSE: Up-to-date CT equipment and radiation dose reduction techniques were employed. CTDIv ol: 18.6 mGy. DLP: 358 mGy-cm. mGy. LIMITATIONS: None. FINDINGS: ALIGNMENT: Anatomic. MINERALIZATION: Normal. VERTEBRAL BODIES: No fractures or dislocation. DISCS: No significant disc disease. FACETS, LATERAL MASSES, POSTERIOR ELEMENTS: No fractures. No dislocation. No acute findings. HARDWARE: None in the spine. VISUALIZED RIBS: No fractures. LUNG APICES AND SOFT TISSUES: No significant or acute findings. OTHER: No other significant finding. IMPRESSION: NO ACUTE OR SIGNIFICANT FINDINGS IN THE CERVICAL SPINE. TECHNICAL DOCUMENTATION: JOB ID: [id number] Quality ID # [id number]: Final reports with documentation of one or more dose reduction techniques (e.g., Au tomated exposure control, adjustment of the mA and/or kV according to patient size, use of iterative reconstruction technique) 2010 [employer]- All Rights Reserved
[2016-12-01] MEDS ORDERED: LEVOFLOXACIN 750 MG/D5W RTU 750 MG/150 ML RTUPB IV SCH (22:00)
[2016-12-02] MEDS: IPRATROPIUM/ALBUTEROL 0.5-2.5 MG/3 ML AMPUL NEB SCH ×4 (02:30→20:43)
[2016-12-02 05:48] LABS: ABSOLUTE LYMPHOCYTES (AUTO) 1.7 10^3/uL (0.5-4.7); ABSOLUTE MONOCYTES (AUTO) 0.3 10^3/uL (0.1-1.4); ABSOLUTE NEUT (AUTO) 4.6 10^3/uL (1.7-8.2); BASOPHILS % (AUTO) 0.1 % (0-2); EOSINOPHILS % (AUTO) 0.4 % (0-6); HEMATOCRIT 41.9 % (36.0-47.0); HEMOGLOBIN 14.7 g/dL (12.0-15.5); HGB HCT DIFFERENCE 2.2; LYMPHOCYTES % (AUTO) 25.3 % (13-45); MEAN CORPUSCULAR HEMOGLOBIN 36.8 pg (27.0-33.4); MEAN CORPUSCULAR VOLUME 105 fl (80-97); MONOCYTES % (AUTO) 4.8 % (3-13); RED BLOOD COUNT 3.99 10^6/uL (3.72-5.28); RED CELL DISTRIBUTION WIDTH 15.2 % (11.5-14.0); SEGMENTED NEUTROPHILS % (AUTO) 69.4 % (42-78); WHITE BLOOD COUNT 6.6 10^3/uL (4.0-10.5)
[2016-12-02 05:58] LABS: ANION GAP 7 (5-19); BLOOD UREA NITROGEN 31 mg/dL (7-20); CALCIUM 9.9 mg/dL (8.4-10.2); CARBON DIOXIDE 28 mmol/L (22-30); CHLORIDE 98 mmol/L (98-107); CREATININE RESULT 0.73 mg/dL (0.52-1.25); GLUCOSE 94 mg/dL (75-110); SODIUM 133.4 mmol/L (137-145)
[2016-12-02] MEDS: LORAZEPAM 1 MG TABLET PO SCH ×3 (06:34→21:22)
[2016-12-02] MEDS: KETOROLAC TROMETHAMINE INJ/PF 30 MG/1 ML SDV IV PRN ×2 (09:23→20:47)
[2016-12-02] MEDS: VENLAFAXINE HCL 75 MG TABLET PO SCH (09:24)
[2016-12-02] MEDS: ATORVASTATIN CALCIUM 20 MG TABLET PO SCH (09:24)
[2016-12-02] MEDS: NICOTINE 14 MG/24 HR PATCH.TD24 TD SCH (09:24)
[2016-12-02] MEDS: THIAMINE HCL 100 MG, FOLIC ACID 1 MG in NORMAL SALINE 50 ML IV SCH (09:24)
[2016-12-02] MEDS: FLUTICASONE NASAL SPRAY 50 MCG/SPRY 120 SPRAY/16 GM NASL SCH ×2 (13:38→21:23)
--- NOTE | 2016-12-02 14:09 | PDOC PROGRESS REPORT ---
Subjective Progress Note for:: 12/02/16 Subjective:: She still has neck discomfort and headache. Her head CT and CT cervical spine done yesterday 12/01/2016 were normal. No acute abnormalities were noted on either. She walked about 60 feet with physical therapy today. She is feeling calm. She did not complain of shortness of breath or chest pain. Physical Exam Vital Signs: Temp Pulse Resp BP Pulse Ox 98.6 F 86 16 136/80 H 94 12/02/16 11:55 12/02/16 13:44 12/02/16 13:44 12/02/16 11:55 12/02/16 13:44 Intake & Output 12/01/16 12/02/16 12/03/16 06:59 06:59 06:59 Intake Total 0 970 Output Total 200 800 Balance -200 170 Weight 58.967 kg General appearance: PRESENT: no acute distress, cooperative, well-developed Head exam: PRESENT: atraumatic, normocephalic Eye exam: PRESENT: conjunctiva pink, EOMI, PERRLA. ABSENT: scleral icterus Neck exam: ABSENT: carotid bruit, JVD, lymphadenopathy, thyromegaly Respiratory exam: PRESENT: clear to auscultation elvis. ABSENT: rales, rhonchi, wheezes Cardiovascular exam: PRESENT: RRR. ABSENT: diastolic murmur, rubs, systolic murmur GI/Abdominal exam: PRESENT: normal bowel sounds, soft. ABSENT: distended, guarding, mass, organolmegaly, rebound, tenderness Musculoskeletal exam: PRESENT: ambulatory, full ROM Neurological exam: PRESENT: alert, awake, oriented to person, oriented to place , oriented to time, oriented to situation, CN II-XII grossly intact. ABSENT: motor sensory deficit Psychiatric exam: PRESENT: appropriate affect, normal mood. ABSENT: homicidal ideation, suicidal ideation Skin exam: PRESENT: dry, intact, warm. ABSENT: cyanosis, rash Results Laboratory Results: 12/02/16 04:36 12/02/16 04:36 12/02/16 12/02/16 04:36 04:36 WBC 6.6 RBC 3.99 Hgb 14.7 Hct 41.9 MCV 105 H MCH 36.8 H MCHC 35.0 RDW 15.2 H Plt Count 81 L Seg Neutrophils % 69.4 Lymphocytes % 25.3 Monocytes % 4.8 Eosinophils % 0.4 Basophils % 0.1 Absolute Neutrophils 4.6 Absolute Lymphocytes 1.7 Absolute Monocytes 0.3 Absolute Eosinophils 0.0 Absolute Basophils 0.0 Sodium 133.4 L Potassium 4.0 Chloride 98 Carbon Dioxide 28 Anion Gap 7 BUN 31 H Creatinine 0.73 Est GFR ( Amer) > 60 Est GFR (Non-Af Amer) > 60 Glucose 94 Calcium 9.9 12/01/16 12/01/16 08:12 08:12 Creatine Kinase 127 CK-MB (CK-2) 5.34 H Troponin I 0.049 Impressions: Chest X-Ray 11/30/16 22:05 IMPRESSION: NO ACUTE RADIOGRAPHIC FINDING IN THE CHEST. Cervical Spine CT 12/01/16 00:00 IMPRESSION: NO ACUTE OR SIGNIFICANT FINDINGS IN THE CERVICAL SPINE. Head CT 12/01/16 00:00 IMPRESSION: NORMAL BRAIN CT WITHOUT CONTRAST. Assessment & Plan - Diagnosis (1) Alcohol withdrawal Qualifiers: Complication of substance-induced condition: uncomplicated Qualified Code(s ): F10.230 - Alcohol dependence with withdrawal, uncomplicated Is this a current diagnosis for this admission?: Yes Plan: Begin lorazepam taper. Currently she is on 2 mg by mouth every 8 hours. I am going to start her on 1 mg by mouth every 8 hours. Continue multivitamin, thiamine, and folate. Continue physical therapy. She is mildly ataxic. I do not want her to lay in bed. (2) Acute exacerbation of chronic bronchitis Is this a current diagnosis for this admission?: Yes Plan: Doing well. She is not wheezing on exam. Continue current care. (3) Hypokalemia Is this a current diagnosis for this admission?: Yes Plan: Corrected. - Time Time Spent with patient: 15-24 minutes Medications reviewed and adjusted accordingly: Yes Anticipated discharge: Home with Homehealth - Inpatient Certification Based on my medical assessment, after consideration of the patient's comorbidities, presenting symptoms, or acuity I expect that the services needed warrant INPATIENT care.: Yes I certify that my determination is in accordance with my understanding of Medicare's requirements for reasonable and necessary INPATIENT services [42 CFR 412.3e].: Yes Medical Necessity: Need Close Monitoring Due to Risk of Patient Decompensation
[2016-12-02] MEDS: TIZANIDINE HCL 4 MG TABLET PO SCH (17:17)
[2016-12-02] MEDS ORDERED: LEVOFLOXACIN 750 MG TABLET PO SCH (22:00)
[2016-12-03] MEDS: IPRATROPIUM/ALBUTEROL 0.5-2.5 MG/3 ML AMPUL NEB SCH ×2 (01:49→07:58)
[2016-12-03] MEDS: LORAZEPAM 1 MG TABLET PO SCH (06:07)
[2016-12-03] MEDS: ATORVASTATIN CALCIUM 20 MG TABLET PO SCH (09:23)
[2016-12-03] MEDS: NICOTINE 14 MG/24 HR PATCH.TD24 TD SCH (09:24)
[2016-12-03] MEDS: KETOROLAC TROMETHAMINE INJ/PF 30 MG/1 ML SDV IV PRN (09:24)
[2016-12-03] MEDS: FLUTICASONE NASAL SPRAY 50 MCG/SPRY 120 SPRAY/16 GM NASL SCH (09:24)
[2016-12-03] MEDS: TIZANIDINE HCL 4 MG TABLET PO SCH (09:24)
[2016-12-03] MEDS: VENLAFAXINE HCL 75 MG TABLET PO SCH (09:24)
[2016-12-03] MEDS ORDERED: THIAMINE HCL 100 MG TABLET PO SCH (10:00)
[2016-12-03 12:34] VITALS: BP 143/93
--- NOTE | 2016-12-03 13:47 | PDOC DISCHARGE SUMMARY ---
General - Admit/Disc Date/PCP Admission Date/Primary Care Provider: 12/02/16 14:02 Discharge Date: 12/03/16 - Discharge Diagnosis (1) Alcohol withdrawal Is this a current diagnosis for this admission?: Yes (2) Acute exacerbation of chronic bronchitis Is this a current diagnosis for this admission?: Yes (3) Hypokalemia Is this a current diagnosis for this admission?: Yes - Additional Information Resuscitation Status: Full Code Discharge Diet: Cardiac Discharge Activity: Activity As Tolerated Home Medications: Albuterol Sulfate [Albuterol Sulfate 2.5mg/3 mL] 1 vial IH Q4HP PRN 12/01/16 Albuterol Sulfate [Proair HFA Inhalation Aerosol 8.5 gm MDI] 2 puff IH Q4HP PRN 12/01/16 Atorvastatin Calcium [Lipitor 20 mg Tablet] 20 mg PO QHS 12/01/16 Cholecalciferol (Vitamin D3) [Vitamin D3 400 Unit Tablet] 400 mg PO DAILY Cyanocobalamin (Vitamin B-12) [Vitamin B-12 Inj 1000 Mcg/1 ml Vial] 1,000 mcg IM .MONTHLY 12/01/16 Fenofibrate 150 mg PO DAILY 12/01/16 Fluticasone/Salmeterol [Advair 250-50 Diskus 14 Dose/Diskus] 1 inh IH Q12 Glucosam/Emil-Msm1/C/Jaquan/Bosw [Osteo Bi-Flex Caplet] 1 each PO DAILY 12/01/16 Lisinopril/Hydrochlorothiazide [Lisinopril-Hctz 10-12.5 mg Tab] 1 each PO DAILY 12/01/16 Montelukast Sodium [Singulair 10 mg Tablet] 10 mg PO QHS 12/01/16 Prednisone [Deltasone 5 mg Tablet] 20 mg PO DAILY 12/01/16 Venlafaxine HCl [Effexor 75 mg Tablet] 75 mg PO Q12 12/01/16 Levofloxacin [Levaquin 750 mg Tablet] 750 mg PO QHS 2 Days #2 tablet 12/03/16 Lorazepam [Ativan 1 mg Tablet] 1 mg PO Q8 8 Days #9 tablet 12/03/16 Nicotine [Nicoderm 14 mg/24 Hr Transdermal Patch] 1 each TD DAILY patch.td24 Thiamine HCl [Thiamine 100 mg Tablet] 100 mg PO DAILY tablet 12/03/16 Tizanidine HCl [Zanaflex 4 mg Tablet] 4 mg PO BID 7 Days #14 tablet 12/03/16 History of Present Illness History of Present Illness: CHERI STEVENS is a 56 year old female with a past medical history of COPD, chronic bronchitis, tobacco and alcohol dependence who was in her usual state of health until approximately 48 hours prior to admission when she presented to the emergency room after rhinorrhea, nonproductive cough and exacerbation of COPD. She was seen in the ED a day prior to admission, and prescribed prednisone, then discharged home. However, she did not have a significant improvement. She came back tremulous, tachycardic, tachypneic, with bilateral rhonchi. She disclosed that she is an alcoholic and fearful of alcohol withdrawal as she is without finances to maintain her habit. Hospital Course Hospital Course: She was admitted for COPD exacerbation. She was also treated for alcohol withdrawal. She was treated with inhaled nebulized bronchodilator therapy along with IV steroids. Her respiratory issues resolved rather quickly. For her tremors, she was given a scheduled dose of lorazepam 2 mg by mouth every 8 hours. After a day, her tremors almost completely resolved. She was unsteady on her feet. However, with PT and a rolling walker, she is able to ambulate. She complained of a headache and neck pain. She disclosed that she fell 2 days prior to admission. Because of the fall, CT head was done. It was normal. No acute abdomen allergies were noted. A CT of the cervical spine was also done. No acute fractures were noted. Her lorazepam was decreased to 1 mg by mouth every 8 hours. She was also given Zanaflex 4 mg twice a day for neck spasm. At the time of discharge her headache and neck pain were reasonably controlled. Her gait was more steady as well. Physical Exam Vital Signs: Temp Pulse Resp BP Pulse Ox 98.6 F 75 16 134/87 H 94 12/02/16 20:29 12/03/16 07:58 12/03/16 07:58 12/02/16 20:29 12/03/16 07:58 Intake & Output 12/02/16 12/03/16 12/04/16 06:59 06:59 06:59 Intake Total 813 Output Total 600 Balance 213 General appearance: PRESENT: no acute distress Neck exam: ABSENT: carotid bruit, JVD, lymphadenopathy, thyromegaly Respiratory exam: PRESENT: clear to auscultation elvis. ABSENT: rales, rhonchi, wheezes Cardiovascular exam: PRESENT: RRR. ABSENT: diastolic murmur, rubs, systolic murmur GI/Abdominal exam: PRESENT: normal bowel sounds, soft. ABSENT: distended, guarding, mass, organolmegaly, rebound, tenderness Neurological exam: PRESENT: alert, awake, oriented to person, oriented to place , oriented to time, oriented to situation, abnormal gait - Unsteady, CN II-XII grossly intact. ABSENT: motor sensory deficit Skin exam: PRESENT: dry, intact, warm. ABSENT: cyanosis, rash Results Impressions: Chest X-Ray 11/30/16 22:05 IMPRESSION: NO ACUTE RADIOGRAPHIC FINDING IN THE CHEST. Cervical Spine CT 12/01/16 00:00 IMPRESSION: NO ACUTE OR SIGNIFICANT FINDINGS IN THE CERVICAL SPINE. Head CT 12/01/16 00:00 IMPRESSION: NORMAL BRAIN CT WITHOUT CONTRAST. Qualifiers PATEINT BEING DISCHARGED WITH ANY OF THE FOLLOWING DIAGNOSIS?: No Plan Discharge Plan: Alcoholics Anonymous Time Spent: Greater than 30 Minutes - 35 minutes
== END 2016-12-03 12:25 | disposition home or self-care (01) | DRG 191 ==
LOC: ER 21:55 → EH 12-01 02:00 → UNDOADMOB 12-01 02:08 → INTOOBSV 12-01 02:08 → EH 12-01 02:08 → 4N 12-01 03:50 → OBSVTOIN 12-02 14:02
PROVIDERS: ADMIT Internal Medicine; ATTEND Internal Medicine
DX: J44.0 Chronic obstructive pulmonary disease with (acute) lower respiratory infection (principal); F10.230 Alcohol dependence with withdrawal, uncomplicated; J20.9 Acute bronchitis, unspecified; J44.1 Chronic obstructive pulmonary disease with (acute) exacerbation; E87.6 Hypokalemia; I10 Essential (primary) hypertension; Z79.899 Other long term (current) drug therapy; Z90.710 Acquired absence of both cervix and uterus; F17.210 Nicotine dependence, cigarettes, uncomplicated; Z88.2 Allergy status to sulfonamides; Z88.5 Allergy status to narcotic agent
CPT/HCPCS: 36415; 36600; 70450; 71010; 72125; 80048; 80053; 80076; 82550; 82553; 82803; 83735; 83880; 84100; 84484; 85025; 87070; 87205; 93005; 93010; 94640; 94799; 96365; 99285; J1644; J1885; J1956; J3411; J3475; J3490; J7620

== ENCOUNTER 2017-01-15 01:29 | Emergency (ER) | payer MEDICAID ==
[2017-01-15 02:43] VITALS: BP 165/78
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
[2017-01-15] MEDS ORDERED: AZITHROMYCIN 250 MG TABLET PO ONE (04:44)
[2017-01-15] MEDS ORDERED: CEFTRIAXONE INJ 250 MG VIAL IM ONE (04:44)
[2017-01-15] MEDS ORDERED: LIDOCAINE 1% INJ-PF (10 MG/ML) 30 ML SDV INFIL ONE (04:44)
[2017-01-15] MEDS ORDERED: LIDOCAINE 2% JELLY 5 ML TUBE TOP ONE (04:47)
== END 2017-01-15 05:05 | disposition home or self-care (01) ==
LOC: ER 01:29
DX: T74.21XA Adult sexual abuse, confirmed, initial encounter (principal); I10 Essential (primary) hypertension; F17.210 Nicotine dependence, cigarettes, uncomplicated; Z79.899 Other long term (current) drug therapy; Y92.009 Unspecified place in unspecified non-institutional (private) residence as the place of occurrence of the external cause
CPT/HCPCS: 99285; 96372; Q0144; J3490 ×2; J0696

== ENCOUNTER 2017-02-10 15:58 | Emergency (ER) | payer MEDICAID ==
--- NOTE | 2017-02-10 18:30 | RADIOLOGY REPORT (SQ) ---
EXAM DESCRIPTION: KUB/ABDOMEN (SINGLE VIEW) COMPLETED DATE/TIME: 02/10/2017 6:14 pm REASON FOR STUDY: epigastric hernia COMPARISON: None. NUMBER OF VIEWS: One view. TECHNIQUE: Supine radiographic image of the abdomen acquired. LIMITATIONS: None. FINDINGS: BOWEL GAS PATTERN: Normal bowel gas pattern. No dilated loops. CALCIFICATIONS: No suspicious calcifications. SOFT TISSUES: No gross mass or suggestion of organomegaly. HARDWARE: None in the abdomen. BONES: No acute fracture. No worrisome bone lesions. OTHER: Epigastric hernia not identified on plain films IMPRESSION: Nonobstructive bowel gas pattern. No gross organomegaly. TECHNICAL DOCUMENTATION: JOB ID: [id number] [employer]- All Rights Reserved
--- NOTE | 2017-02-10 19:03 | ER Document Report ---
ED General - General Chief Complaint: Abdominal Pain Stated Complaint: VOMITING Time Seen by Provider: 02/10/17 16:24 Mode of Arrival: Ambulatory Information source: Patient Notes: 56-year-old female history of alcohol abuse 3 previous inguinal hernias and 3 epigastric hernias presents with complaints of another hernia in the epigastric region. Patient denies any nausea vomiting, denies any constipation. Patient notes over the past week she when she coughs the hernia seems to get worse TRAVEL OUTSIDE OF THE [place] IN LAST 30 DAYS: No - HPI Onset: Last week Onset/Duration: Intermittent Quality of pain: Achy Severity: Mild Pain Level: 1 Associated symptoms: Other Exacerbated by: Other Relieved by: Denies Similar symptoms previously: Yes Recently seen / treated by doctor: Yes - Related Data Allergies/Adverse Reactions: codeine Allergy (Verified 02/10/17 16:08) Migraine morphine Allergy (Verified 02/10/17 16:08) Hallucinations Sulfa (Sulfonamide Antibiotics) Allergy (Verified 02/10/17 16:08) Nausea Past Medical History - Social History Smoking Status: Current Every Day Smoker Cigarette use (# per day): Yes Chew tobacco use (# tins/day): No Smoking Education Provided: No Frequency of alcohol use: Heavy Drug Abuse: None Family History: COPD, Hypertension Patient has suicidal ideation: No Patient has homicidal ideation: No - Past Medical History Cardiac Medical History: Reports: Hx Hypertension - medicated Denies: Hx Heart Attack Pulmonary Medical History: Reports: Hx Asthma - medicated, Hx Bronchitis, Hx COPD Neurological Medical History: Reports: Hx Seizures - LAST 1971,no meds since. Denies: Hx Cerebrovascular Accident Renal/ Medical History: Denies: Hx Ectopic , Hx End Stage Renal Disease, Hx Hemodialysis, Hx Hydrocele, Hx Kidney Stones, Hx Ovarian Cysts, Hx Peritoneal Dialysis, Hx Pelvic Inflammatory Disease, Hx Renal Insufficiency, Hx Varicocele GI Medical History: Denies: Hx Hepatitis, Hx Hiatal Hernia, Hx Ulcer Infectious Medical History: Denies: Hx Hepatitis Past Surgical History: Reports: Hx Hysterectomy, Hx Orthopedic Surgery - left arm. Denies: Hx Mastectomy, Hx Open Heart Surgery, Hx Pacemaker - Immunizations Hx Diphtheria, Pertussis, Tetanus Vaccination: No Review of Systems - Review of Systems Notes: REVIEW OF SYSTEMS: CONSTITUTIONAL : Denies fever, chills, or sweats. Denies recent illness. EENT: Denies eye, ear, throat, or mouth pain or symptoms. Denies nasal or sinus congestion or discharge. Denies throat, tongue, or mouth swelling or difficulty swallowing. CARDIOVASCULAR: Denies chest pain. Denies palpitations or racing or irregular heart beat. Denies ankle edema. RESPIRATORY: Denies cough, cold, or chest congestion. Denies shortness of breath, difficulty breathing, or wheezing. GASTROINTESTINAL: Admits to epigastric pain GENITOURINARY: Denies difficulty urinating, painful urination, burning, frequency, blood in urine, or discharge. FEMALE GENITOURINARY: Denies vaginal bleeding, heavy or abnormal periods, irregular periods. Denies vaginal discharge or odor. MUSCULOSKELETAL: Denies back or neck pain or stiffness. Denies joint pain or swelling. SKIN: Denies rash, lesions or sores. HEMATOLOGIC : Denies easy bruising or bleeding. LYMPHATIC: Denies swollen, enlarged glands. NEUROLOGICAL: Denies confusion or altered mental status. Denies passing out or loss of consciousness. Denies dizziness or lightheadedness. Denies headache. Denies weakness or paralysis or loss of use of either side. Denies problems with gait or speech. Denies sensory loss, numbness, or tingling. Denies seizures. PSYCHIATRIC: Denies anxiety or stress. Denies depression, suicidal ideation, or homicidal ideation. ALL OTHER SYSTEMS REVIEWED AND NEGATIVE. PHYSICAL EXAMINATION: GENERAL: Well-appearing, well-nourished and in no acute distress. HEAD: Atraumatic, normocephalic. EYES: Pupils equal round and reactive to light, extraocular movements intact, conjunctiva are normal. ENT: Nares patent, oropharynx clear without exudates. Moist mucous membranes. NECK: Normal range of motion, supple without lymphadenopathy LUNGS: Breath sounds clear to auscultation bilaterally and equal. No wheezes rales or rhonchi. HEART: Regular rate and rhythm without murmurs ABDOMEN: Soft, nontender, nondistended abdomen. Epigastric hernia noted, surgical incisions noted Female : deferred Musculoskeletal: Normal range of motion, no pitting or edema. No cyanosis. NEUROLOGICAL: Cranial nerves grossly intact. Normal speech, normal gait. Normal sensory, motor exams PSYCH: Normal mood, normal affect. SKIN: Warm, Dry, normal turgor, no rashes or lesions noted. Dictation was performed using Dragon voice recognition software Physical Exam - Vital signs Vitals: Temp Pulse Resp BP Pulse Ox 98.5 F 96 16 105/67 95 02/10/17 16:09 02/10/17 16:09 02/10/17 16:09 02/10/17 16:09 02/10/17 16:09 Course - Re-evaluation Re-evalutation: 02/10/17 23:56 X-ray noted no obstruction, patient is able to easily reduce the hernia, patient is supposed to go to detox for her alcohol abuse in the believe this is appropriate. Patient overall looks well is in no distress, I did request she decrease her narcotic use as this is probably making her constipated worsening her symptoms which she agrees, patient will be given MiraLAX and anti- inflammatory Very strict return precautions regarding obstructions have been discussed with the patient After performing a Medical Screening Examination, I estimate there is LOW risk for ACUTE APPENDICITIS, BOWEL OBSTRUCTION, ACUTE CHOLECYSTITIS, PERFORATED DIVERTICULITIS, INCARCERATED HERNIA, PANCREATITIS, PELVIC INFLAMMATORY DISEASE, PERFORATED ULCER, ECTOPIC , or TUBO-OVARIAN ABSCESS, thus I consider the discharge disposition reasonable. Also, there is no evidence or peritonitis , sepsis, or toxicity. I have reevaluated this patient multiple times and no significant life threatening changes are noted. The patient and I have discussed the diagnosis and risks, and we agree with discharging home with close follow-up with the understanding that symptoms and presentations can change. We also discussed returning to the Emergency Department immediately if new or worsening symptoms occur. We have discussed the symptoms which are most concerning (e.g., bloody stool, fever, changing or worsening pain, vomiting) that necessitate immediate return. - Vital Signs Vital signs: Temp Pulse Resp BP Pulse Ox 97.6 F 82 18 131/75 H 95 02/10/17 19:57 02/10/17 19:57 02/10/17 19:57 02/10/17 19:57 02/10/17 19:57 - Diagnostic Test Radiology reviewed: Image reviewed, Reports reviewed Discharge - Discharge Clinical Impression: Hernia Alcohol dependence Qualifiers: Substance use status: uncomplicated Qualified Code(s): F10.20 - Alcohol dependence, uncomplicated Condition: Stable Disposition: HOME, SELF-CARE Instructions: Abdominal Pain ([facility]) Prescriptions: Naproxen 500 mg PO BID #20 tablet Polyethylene Glycol 3350 [Miralax Powder 17 gm/Packet] 1 packet PO DAILY #7 pkg Referrals: MAYCO NGUYEN MD [ACTIVE STAFF] - Follow up as needed
[2017-02-10 19:58] VITALS: BP 131/75
== END 2017-02-10 19:58 | disposition home or self-care (01) ==
LOC: ER 15:58
DX: K43.9 Ventral hernia without obstruction or gangrene (principal); F10.20 Alcohol dependence, uncomplicated; R11.10 Vomiting, unspecified; R10.9 Unspecified abdominal pain; R10.13 Epigastric pain; F17.210 Nicotine dependence, cigarettes, uncomplicated
CPT/HCPCS: 74000; 99283

== ENCOUNTER 2017-02-14 15:45 | Emergency (ER) | payer MEDICAID ==
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
[2017-02-14 18:20] LABS: ALANINE AMINOTRANSFERASE 114 U/L (9-52); ALKALINE PHOSPHATASE 210 U/L (38-126); ANION GAP 13 (5-19); ASPARTATE AMINO TRANSFERASE 277 U/L (14-36); BILIRUBIN,DIRECT 6.1 mg/dL (0.0-0.4); BILIRUBIN,TOTAL 7.3 mg/dL (0.2-1.3); BLOOD UREA NITROGEN 32 mg/dL (7-20); CARBON DIOXIDE 26 mmol/L (22-30); CHLORIDE 91 mmol/L (98-107); CREATININE RESULT 1.12 mg/dL (0.52-1.25); GLUCOSE 113 mg/dL (75-110); POTASSIUM 3.4 mmol/L (3.6-5.0); TOTAL PROTEIN 6.9 g/dL (6.3-8.2)
[2017-02-14 18:23] LABS: ALCOHOL < 10 mg/dL (NONE DETECTED)
[2017-02-14 19:06] LABS: RED BLOOD COUNT 4.22 10^6/uL (3.72-5.28); WHITE BLOOD COUNT 5.7 10^3/uL (4.0-10.5)
[2017-02-14 19:06] LABS: APPEARANCE,URINE CLOUDY; BILIRUBIN,URINE SMALL (NEGATIVE); GLUCOSE, URINE NEGATIVE (NEGATIVE); KETONES,URINE TRACE mg/dL (NEGATIVE); LEUKOCYTE ESTERASE,URINE MODERATE (NEGATIVE); NITRITE,URINE NEGATIVE (NEGATIVE); PROTEIN,URINE 100 mg/dL (NEGATIVE)
[2017-02-14 19:07] LABS: ABSOLUTE MONOCYTES (AUTO) 0.2 10^3/uL (0.1-1.4); ABSOLUTE NEUT (AUTO) 4.4 10^3/uL (1.7-8.2); BASOPHILS % (AUTO) 0.7 % (0-2); EOSINOPHILS % (AUTO) 0.2 % (0-6); HEMATOCRIT 42.5 % (36.0-47.0); HGB HCT DIFFERENCE 2.5; MEAN CORPUSCULAR HEMOGLOBIN 35.4 pg (27.0-33.4); MEAN CORPUSCULAR HGB CONC 35.2 g/dL (32.0-36.0); MEAN CORPUSCULAR VOLUME 101 fl (80-97); SEGMENTED NEUTROPHILS % (AUTO) 77.1 % (42-78)
[2017-02-14 19:34] LABS: URINE BARBITURATES SCREEN NEGATIVE; URINE METHADONE SCREEN NEGATIVE; URINE OPIATES LOW NEGATIVE; URINE PHENCYCLIDINE SCREEN NEGATIVE
[2017-02-14] MEDS ORDERED: NICOTINE 21 MG/24 HR PATCH.TD24 TD ONE (19:43)
--- NOTE | 2017-02-14 20:14 | ER Document Report ---
ED General - General Chief Complaint: Psych Problem Stated Complaint: PSYCH EVAL Time Seen by Provider: 02/14/17 16:15 Mode of Arrival: Ambulatory Notes: Patient is a 56-year-old female with a past medical history of chronic alcohol abuse who presents with suicidal ideation and alcohol dependency and withdrawal. Patient apparently wrote a suicide note 2 days ago but never acted on it. [facility] was contacted today by family and they encouraged her to come here to the emergency department for further assessment psychiatric evaluation. Patient has scheduled a bed an inpatient detox facility but apparently needed a drug screen before she could be completely accepted. At time of presentation, patient denies any acute complaint or concern. She denies feeling actively suicidal. She does note that she has not had an alcoholic beverage and was 24 hours and does have some slight tremors, upset stomach and diarrhea. Nothing improves or worsens her symptoms. She has no prior history of complicated withdrawals in the past. TRAVEL OUTSIDE OF THE [place] IN LAST 30 DAYS: No - Related Data Allergies/Adverse Reactions: codeine Allergy (Verified 02/14/17 16:03) Migraine morphine Allergy (Verified 02/14/17 16:03) Hallucinations Sulfa (Sulfonamide Antibiotics) Allergy (Verified 02/14/17 16:03) Nausea Home Medications: Current Home Medications Diazepam 1 tab PO PRN PRN 02/14/17 [History] Past Medical History - General Information source: Patient, Relative - Social History Smoking Status: Current Every Day Smoker Frequency of alcohol use: Heavy Drug Abuse: None Lives with: Family Family History: COPD, Hypertension Patient has suicidal ideation: Yes Patient has homicidal ideation: No - Past Medical History Cardiac Medical History: Reports: Hx Hypertension - medicated Denies: Hx Heart Attack Pulmonary Medical History: Reports: Hx Asthma - medicated, Hx Bronchitis, Hx COPD Neurological Medical History: Reports: Hx Seizures - LAST 1971,no meds since. Denies: Hx Cerebrovascular Accident Renal/ Medical History: Denies: Hx Ectopic , Hx End Stage Renal Disease, Hx Hemodialysis, Hx Hydrocele, Hx Kidney Stones, Hx Ovarian Cysts, Hx Peritoneal Dialysis, Hx Pelvic Inflammatory Disease, Hx Renal Insufficiency, Hx Varicocele GI Medical History: Denies: Hx Hepatitis, Hx Hiatal Hernia, Hx Ulcer Infectious Medical History: Denies: Hx Hepatitis Past Surgical History: Reports: Hx Hysterectomy, Hx Orthopedic Surgery - left arm. Denies: Hx Mastectomy, Hx Open Heart Surgery, Hx Pacemaker - Immunizations Hx Diphtheria, Pertussis, Tetanus Vaccination: No Review of Systems - Review of Systems Notes: Constitutional: Negative for fever. HENT: Negative for sore throat. Eyes: Negative for visual changes. Cardiovascular: Negative for chest pain. Respiratory: Negative for shortness of breath. Gastrointestinal: Positive for abdominal cramping and diarrhea Genitourinary: Negative for dysuria. Musculoskeletal: Negative for back pain. Skin: Negative for rash. Neurological: Negative for headaches, weakness or numbness. 10 point ROS negative except as marked above and in HPI. Physical Exam - Vital signs Vitals: Temp Pulse Resp BP Pulse Ox 98.9 F 99 16 102/77 98 02/14/17 15:59 02/14/17 15:59 02/14/17 15:59 02/14/17 15:59 02/14/17 15:59 Interpretation: Normal Notes: PHYSICAL EXAMINATION: GENERAL: Well-appearing, well-nourished and in no acute distress. HEAD: Atraumatic, normocephalic. EYES: Pupils equal round and reactive to light, extraocular movements intact, sclera anicteric, conjunctiva are normal. ENT: nares patent, oropharynx clear without exudates. Moist mucous membranes. NECK: Normal range of motion, supple without lymphadenopathy LUNGS: Breath sounds clear to auscultation bilaterally and equal. No wheezes rales or rhonchi. HEART: Regular rate and rhythm without murmurs ABDOMEN: Soft, nontender, normoactive bowel sounds. No guarding, no rebound. No masses appreciated. EXTREMITIES: Normal range of motion, no pitting or edema. No cyanosis. NEUROLOGICAL: No focal neurological deficits. Moves all extremities spontaneously and on command. PSYCH: Normal mood, normal affect. SKIN: Warm, Dry, normal turgor, no rashes or lesions noted. Course - Re-evaluation Re-evalutation: 02/14/17 20:10 Patient presents with concerns of possible suicidal ideation at home, having made a suicide note on , and going through alcohol withdrawal. Patient does not appear to be having significant withdrawals here in the emergency department. Last drink was approximately 24 hours ago. She already has an inpatient bed at detox facility in [place] at [facility]. She denies any acute safety concerns. She does not meet IVC criteria at this time. However patient is requested to remain in the emergency department with a history of psychiatry in the morning and then have hopefully a direct transfer to the inpatient rehab facility. She is medically cleared for psychiatric evaluation. - Vital Signs Vital signs: Temp Pulse Resp BP Pulse Ox 98.5 F 86 16 119/74 96 02/14/17 23:21 02/14/17 23:21 02/14/17 23:21 02/14/17 23:21 02/14/17 23:21 - Laboratory Result Diagrams: 02/14/17 18:53 02/14/17 17:26 Laboratory results interpreted by me: 02/14/17 02/14/17 02/14/17 17:26 17:53 18:53 MCV 101 H MCH 35.4 H RDW 18.0 H Plt Count 73 L Sodium 130.0 L Potassium 3.4 L Chloride 91 L BUN 32 H Est GFR (Non-Af Amer) 50 L Glucose 113 H Total Bilirubin 7.3 H Direct Bilirubin 6.1 H AST 277 H ALT 114 H Alkaline Phosphatase 210 H Urine Protein 100 H Urine Ketones TRACE H Urine Blood SMALL H Urine Bilirubin SMALL H Urine Urobilinogen 4.0 H Ur Leukocyte Esterase MODERATE H Salicylates < 1.0 L Acetaminophen < 10 L - EKG Interpretation by Me Additional EKG results interpreted by me: 02/15/17 01:59 Normal sinus rhythm. Rate 94. No ST elevations or depressions. QTC is 486. Discharge - Discharge Clinical Impression: Suicidal ideation Alcohol dependence Qualifiers: Substance use status: uncomplicated Qualified Code(s): F10.20 - Alcohol dependence, uncomplicated Alcohol withdrawal Qualifiers: Complication of substance-induced condition: uncomplicated Qualified Code(s): F10.230 - Alcohol dependence with withdrawal, uncomplicated Disposition: PSYCH HOSP/UNIT
--- NOTE | 2017-02-15 07:53 | EKG REPORT ---
SEVERITY:- DEFECTIVE ECG - RIGHT AND LEFT ARM LEADS REVERSED, PLEASE REPEAT ECG : Confirmed by: Dale Eaton MD 15-Feb-2017 07:53:26
[2017-02-15 10:18] VITALS: BP 107/69
--- NOTE | 2017-02-15 11:17 | ER Document Report ---
Doctor's Note Notes: 02/15/17 11:14 Patient denies suicidal ideation. She will be discharged with mobile crisis. She is awaiting for a detox bed at [facility]. Patient has been evaluated and cleared by psychiatry. She is hemodynamically stable at this time.
--- NOTE | 2017-02-15 13:37 | EKG REPORT ---
SEVERITY:- ABNORMAL ECG - SINUS RHYTHM FIRST DEGREE AV BLOCK BORDERLINE T ABNORMALITIES, ANT-LAT LEADS BORDERLINE PROLONGED QT INTERVAL : Confirmed by: Dale Eaton MD 15-Feb-2017 13:35:53
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
== END 2017-02-15 11:32 | disposition home or self-care (01) ==
LOC: ER 15:45
DX: R45.851 Suicidal ideations (principal); F10.230 Alcohol dependence with withdrawal, uncomplicated; F17.200 Nicotine dependence, unspecified, uncomplicated
CPT/HCPCS: 93005 ×2; 99285; 36415; 80307 ×4; 85025; 80053; 81001; 93010 ×2; J3490